=== PATIENT | male | born 1995 | race Caucasian/White ===

== ENCOUNTER 2018-10-26 19:26 | Emergency (ER) | payer SELFPAY ==
[2018-10-26 19:52] VITALS: BP 128/75; TEMP 98.2; O2SAT 97
[2018-10-26] MEDS ORDERED: predniSONE 20 MG TAB PO ONE (19:52)
[2018-10-26] MEDS ORDERED: CLINDAMYCIN HCL CAP 150 MG CAP PO ONE (19:52)
[2018-10-26] MEDS ORDERED: HYDROcodone 5MG/APAP 325MG 1 EA TAB PO ONE (19:53)
--- NOTE | 2018-10-26 19:57 | ED.PDOC ---
History of Present Illness - General Chief Complaint: General Stated Complaint: left jaw, faith, neck pain Time Seen by Provider: 10/26/18 19:52 Source: patient Exam Limitations: no limitations - History of Present Illness Initial Comments: The patient's 23-year-old male presenting to the emergency room secondary to pain extending from his left TMJ down to his lower molars on the left. He does have very poor dentition and multiple obvious cavities. No palpable abscess. No defining point tenderness. He does have pain over the temporomandibular joint. No obvious deformity. No crepitus. No recent trauma. No fevers. Timing/Duration: other - 3 days Severity: moderate Improving Factors: nothing Worsening Factors: nothing Associated Symptoms: denies symptoms Allergies/Adverse Reactions: Allergies NO KNOWN ALLERGY Allergy (Verified 10/26/18 19:51) Home Medications: Ambulatory Orders Clindamycin HCl 300 mg PO Q8H #20 cap 10/26/18 Tramadol HCl 50 mg PO Q8HR PRN #20 tab 10/26/18 Review of Systems - Review of Systems Constitutional: States: no symptoms reported EENTM: States: see HPI Respiratory: States: no symptoms reported Cardiology: States: no symptoms reported Gastrointestinal/Abdominal: States: no symptoms reported Genitourinary: States: no symptoms reported Musculoskeletal: States: no symptoms reported Skin: States: no symptoms reported Neurological: States: no symptoms reported Endocrine: States: no symptoms reported All other Systems: No Change from Baseline Past Medical History (General) - Patient Medical History Hx Seizures: No Hx Stroke: No Hx Dementia: No Hx Asthma: No Hx of COPD: No Hx Cardiac Disorders: No Hx Congestive Heart Failure: No Hx Pacemaker: No Hx Hypertension: No Hx Thyroid Disease: No Hx Diabetes: No Hx Gastroesophageal Reflux: No Hx Renal Disease: No Hx Cancer: No Hx of HIV: No Hx Hepatitis C: No Hx MRSA: No - Vaccination History Hx Tetanus, Diphtheria Vaccination: Yes - 2018 Hx Influenza Vaccination: Yes - Social History Hx Tobacco Use: Yes Hx Alcohol Use: Yes - social Family Medical History - Family History Mother Family History: Unknown Physical Exam - Physical Exam General Appearance: Alert, Comfortable, No apparent distress Eye Exam: bilateral normal Ears, Nose, Throat: hearing grossly normal, other - see history of present illness Neck: full range of motion, supple Respiratory: no respiratory distress, no accessory muscle use Cardiovascular/Chest: normal peripheral pulses, no edema Peripheral Pulses: radial,right: 2+, radial,left: 2+ Gastrointestinal/Abdominal: non tender, soft Rectal Exam: deferred Extremity: non-tender, normal inspection, no pedal edema, normal capillary refill Neurologic: stay cutter II-XII nml as tested, alert, normal mood/affect, oriented x 3 Skin Exam: normal color Comments: Vital Signs - 24 hr 10/26/18 19:35 Temperature 98.2 F Pulse Rate [ 89 monitor] Respiratory 18 Rate Blood Pressure 128/75 [Left Arm] O2 Sat by Pulse 97 Oximetry Progress - Progress Progress: 10/26/18 19:57 the patient's 23-year-old male presenting to emergency room secondary to pain in his left lower jaw. Source of this is not entirely certain. this could be some inflammation from the temporomandibular joint or it may be pain coming from one of his dental caries. The patient can try Orajel. He can also take 2 Aleve twice a day for the next few days with food. He has been given a dose of prednisone here to help reduce inflammation and he is being started on clindamycin which we can continue as an outpatient. He does need to see a dentist for his dental caries. A cool compress may also help symptoms. ER warnings were given. Departure - Departure Clinical Impression: Jaw pain Disposition: Discharge to Home or Self Care Condition: Fair Departure Forms: ED Discharge - Pt. Copy, Patient Portal Self Enrollment Instructions: Temporomandibular Joint (TMJ) Disorders (DC), Tooth Decay, Adult (DC) Diet: regular diet Activity: increase activity as tolerated Referrals: HANNAH CHAIREZ [Primary Care Provider] - 1-2 Weeks Prescriptions: Tramadol HCl 50 mg PO Q8HR PRN #20 tab PRN Reason: Moderate Pain Clindamycin HCl 300 mg PO Q8H #20 cap Home Medications: Ambulatory Orders Clindamycin HCl 300 mg PO Q8H #20 cap 10/26/18 Tramadol HCl 50 mg PO Q8HR PRN #20 tab 10/26/18 Additional Instructions: the patient's 23-year-old male presenting to emergency room secondary to pain in his left lower jaw. Source of this is not entirely certain. this could be some inflammation from the temporomandibular joint or it may be pain coming from one of his dental caries. The patient can try Orajel. He can also take 2 Aleve twice a day for the next few days with food. He has been given a dose of prednisone here to help reduce inflammation and he is being started on clindamycin which we can continue as an outpatient. He does need to see a dentist for his dental caries. A cool compress may also help symptoms. ER warnings were given.
== END 2018-10-26 20:24 | disposition home or self-care (01) ==
LOC: ER 19:26
DX: R68.84 Jaw pain (principal); K02.9 Dental caries, unspecified

== ENCOUNTER 2019-08-21 00:14 | Emergency (ER) | payer SELFPAY ==
[2019-08-21 00:32] VITALS: O2SAT 95
--- NOTE | 2019-08-21 00:36 | ED.PDOC ---
History of Present Illness - General Chief Complaint: Back Pain or Injury Stated Complaint: left lateral back pain Time Seen by Provider: 08/21/19 00:29 - History of Present Illness Initial Comments: this is a 24-year-old young man who presents to the ED with complaints of left- sided flank pain starting approximately 2-1/2 hours ago. He states that he had this feeling once before but never had it evaluated. He has no known history of kidney stones. He states that he is slightly nauseated but has not vomited. He describes the pain as being a 6-7/10 in intensity. Patient denies any recent hematuria. He does admit to radiation of the pain to the left inguinal region. He denies any chronic history of low back pain. He does admit that he has not taking his antihypertensive which was prescribed. He is also a smoker. Allergies/Adverse Reactions: Allergies NO KNOWN ALLERGY Allergy (Verified 10/26/18 19:51) Home Medications: Ambulatory Orders Clindamycin HCl 300 mg PO Q8H #20 cap 10/26/18 Tramadol HCl 50 mg PO Q8HR PRN #20 tab 10/26/18 Ciprofloxacin [Cipro] 250 mg PO Q12H #14 tablet 08/21/19 Ketorolac Tromethamine [Toradol Tabs] 10 mg PO Q6HR #20 tab 08/21/19 Ondansetron Tab [Zofran Tab] 4 mg PO Q6HR #10 tab 08/21/19 Tamsulosin HCl [Flomax] 0.4 mg PO DAILY #10 cap 08/21/19 Review of Systems - Review of Systems Constitutional: States: no symptoms reported EENTM: States: no symptoms reported Respiratory: States: no symptoms reported Cardiology: States: no symptoms reported Gastrointestinal/Abdominal: States: see HPI, nausea Genitourinary: States: no symptoms reported. Denies: dysuria, frequency, hematuria Musculoskeletal: States: back pain, other - left flank pain Skin: States: no symptoms reported Neurological: States: no symptoms reported Endocrine: States: no symptoms reported Hematologic/Lymphatic: States: no symptoms reported All other Systems: Reviewed and Negative Past Medical History (General) - Patient Medical History Hx Seizures: No Hx Stroke: No Hx Dementia: No Hx Asthma: No Hx of COPD: No Hx Cardiac Disorders: No Hx Congestive Heart Failure: No Hx Pacemaker: No Hx Hypertension: No Hx Thyroid Disease: No Hx Diabetes: No Hx Gastroesophageal Reflux: No Hx Renal Disease: No Hx Cancer: No Hx of HIV: No Hx Hepatitis C: No Hx MRSA: No Surgical History: other - Vaccination History Hx Tetanus, Diphtheria Vaccination: Yes Hx Influenza Vaccination: Yes - Social History Hx Tobacco Use: Yes Hx Alcohol Use: No Family Medical History - Family History Mother Family History: Unknown Physical Exam - Physical Exam General Appearance: Alert, No apparent distress Eyes, Ears, Nose, Throat Exam: PERRL/EOMI Neck Exam: non-tender, full range of motion Cardiovascular/Respiratory: regular rate, rhythm, no M/R/G, normal peripheral pulses, no JVD, normal breath sounds, no respiratory distress Gastrointestinal/Abdominal: normal bowel sounds, non tender, soft, no organomegaly, no pulsatile mass Back Exam: CVA tenderness (L), other - mild tenderness is noted. Extremity Exam: no evidence of injury Neurologic: alert, normal mood/affect, oriented x 3 Skin Exam: normal color, warm/dry Progress - Progress Progress: 08/21/19 01:10 the patient does have evidence of hematuria and the Toradol has helped his pain. Patient is resting comfortably. - Results/Orders Results/Orders: IMPRESSION: - Left hydronephrosis and proximal hydroureter due to an irregular 7 mm left ureteral stone at the level of the L4 vertebral body. - Possible irregular urinary bladder wall thickening versus artifact related to underdistention. Suspicious for nonspecific cystitis, however, clinical correlation is suggested. - Significant fecal retention and patchy colonic spasm without apparent bowel obstruction. - Liver borderline enlarged and diffusely fatty infiltrated without focal hepatic abnormality seen. Clinical correlation is suggested. - Study provided limited by lack of intravenous contrast. Thank you for allowing us to participate in the care of this patient. Electronically signed by: Rohan Phan MD 08/21/2019 1:18 AM CDT 08/21/19 00:36 IV:Start .ONCE Laboratory Results - last 24 hr 08/21/19 08/21/19 08/21/19 00:40 00:47 00:47 WBC 10.0 RBC 4.71 Hgb 15.7 Hct 44.8 MCV 95.1 H MCH 33.3 H MCHC 35.1 RDW 12.9 Plt Count 213 MPV 8.8 Absolute Neuts (auto) 5.30 Absolute Lymphs (auto) 3.10 Absolute Monos (auto) 0.90 H Absolute Eos (auto) 0.50 H Absolute Basos (auto) 0.10 Neutrophils % 53.5 Lymphocytes % 31.4 Monocytes % 9.4 H Eosinophils % 5.2 H Basophils % 0.5 Sodium 141 Potassium 3.8 Chloride 106 Carbon Dioxide 22 Anion Gap 16.8 BUN 16 Creatinine 1.01 BUN/Creatinine Ratio 15.8 Random Glucose 117 H Serum Osmolality 283.5 Calcium 9.9 Total Bilirubin 0.7 AST 58 H ALT 90 H Alkaline Phosphatase 55 Serum Total Protein 8.2 Albumin 5.3 Globulin 2.9 Albumin/Globulin Ratio 1.8 Urine Color Dk yellow Urine Appearance Clear Urine pH 5.5 Ur Specific [place] >= 1.030 Urine Protein Negative Urine Glucose (UA) Negative Urine Ketones Negative Urine Blood Moderate H Urine Nitrite Negative Urine Bilirubin Negative Urine Urobilinogen 0.2 Ur Leukocyte Esterase Negative Urine RBC 3-5 H Urine WBC 5-10 H Ur Epithelial Cells 0 Urine Bacteria Rare Urine Mucus Moderate Departure - Departure Clinical Impression: Ureterolithiasis, Renal colic on left side Time of Disposition: 01:36 Disposition: Discharge to Home or Self Care Condition: Good Departure Forms: ED Discharge - Pt. Copy, Patient Portal Self Enrollment Instructions: Kidney Stones (DC) Referrals: HANNAH CHAIREZ [Primary Care Provider] - 1-2 Weeks LIMA PETERSEN MD [Consulting Staff] - 1-2 Weeks Prescriptions: Ketorolac Tromethamine [Toradol Tabs] 10 mg PO Q6HR #20 tab Ondansetron Tab [Zofran Tab] 4 mg PO Q6HR #10 tab Ciprofloxacin [Cipro] 250 mg PO Q12H #14 tablet Tamsulosin HCl [Flomax] 0.4 mg PO DAILY #10 cap Home Medications: Ambulatory Orders Clindamycin HCl 300 mg PO Q8H #20 cap 10/26/18 Tramadol HCl 50 mg PO Q8HR PRN #20 tab 10/26/18 Ciprofloxacin [Cipro] 250 mg PO Q12H #14 tablet 08/21/19 Ketorolac Tromethamine [Toradol Tabs] 10 mg PO Q6HR #20 tab 08/21/19 Ondansetron Tab [Zofran Tab] 4 mg PO Q6HR #10 tab 08/21/19 Tamsulosin HCl [Flomax] 0.4 mg PO DAILY #10 cap 08/21/19 Additional Instructions: patient informed that if pain is uncontrollable he is to return to the ED for further evaluation and treatment. He may possibly be admitted or transferred if that occurs. Take all medications as prescribed. Schedule appointment with Dr. Petersen.
[2019-08-21] MEDS ORDERED: KETOROLAC TROMETHAMINE INJ 30 MG/ML VIAL IV ONE (00:37)
[2019-08-21] MEDS ORDERED: ONDANSETRON INJ 4 MG/2 ML VIAL IV ONE (00:37)
[2019-08-21] MEDS ORDERED: TAMSULOSIN 0.4 MG CAP PO ONE (01:13)
--- NOTE | 2019-08-21 01:20 | CT ---
EXAM: CT Abdomen and Pelvis Without Intravenous Contrast CLINICAL HISTORY: 24 years old Male; flank pain, left. TECHNIQUE: Axial computed tomography images of the abdomen and pelvis without intravenous contrast. Sagittal and coronal reformatted images were created and reviewed. This CT exam was performed using one or more of the following dose reduction techniques: automated exposure control, adjustment of the mA and/or kV according to patient size, and/or use of iterative reconstruction technique. COMPARISON: No relevant prior studies available. FINDINGS: LIMITATIONS: Study provided limited by lack of intravenous contrast. LUNG BASES: Minimal patchy infiltrate/atelectasis in the lung bases, especially dependently and minimal nodularity in the peripheral left lung base. ABDOMEN: LIVER: Liver borderline enlarged and diffusely fatty infiltrated without focal hepatic abnormality seen. GALLBLADDER AND BILE DUCTS: Normal without CT evidence of acute cholecystitis. PANCREAS: Unremarkable. No ductal dilation. SPLEEN: No splenomegaly or focal abnormality seen. ADRENALS: Unremarkable. No mass. KIDNEYS AND URETERS: Left hydronephrosis and proximal hydroureter due to an irregular 7 mm left ureteral stone at the level of the L4 vertebral body. Small bilateral nonobstructing renal stones. No ureteral stone or hydroureteronephrosis on the right. STOMACH AND BOWEL: Significant fecal retention and patchy colonic spasm without apparent bowel obstruction. PELVIS: APPENDIX: No CT findings to suggest acute appendicitis. BLADDER: Possible irregular urinary bladder wall thickening versus artifact related to underdistention. REPRODUCTIVE: Unremarkable as visualized. ABDOMEN and PELVIS: INTRAPERITONEAL SPACE: No pneumoperitoneum. No free fluid or loculated fluid collection seen. BONES/JOINTS: No acute bony abnormality seen. One small bone island in the anterior head/neck of the left femur. SOFT TISSUES: No acute abnormality seen. VASCULATURE: No acute abnormality seen. LYMPH NODES: Small mesenteric lymph nodes. IMPRESSION: - Left hydronephrosis and proximal hydroureter due to an irregular 7 mm left ureteral stone at the level of the L4 vertebral body. - Possible irregular urinary bladder wall thickening versus artifact related to underdistention. Suspicious for nonspecific cystitis, however, clinical correlation is suggested. - Significant fecal retention and patchy colonic spasm without apparent bowel obstruction. - Liver borderline enlarged and diffusely fatty infiltrated without focal hepatic abnormality seen. Clinical correlation is suggested. - Study provided limited by lack of intravenous contrast. Thank you for allowing us to participate in the care of this patient. Electronically signed by: Rohan Phan MD 08/21/2019 1:18 AM CDT
[2019-08-21] MEDS ORDERED: levoFLOXacin 500 MG TAB PO ONE (01:21)
[2019-08-21 01:51] VITALS: BP 147/92; TEMP 97.6
== END 2019-08-21 01:49 | disposition home or self-care (01) ==
LOC: ER 00:14
DX: N13.2 Hydronephrosis with renal and ureteral calculous obstruction (principal); F17.200 Nicotine dependence, unspecified, uncomplicated
CPT/HCPCS: 74176; 80053; 81001; 85025; J1885; J2405

== ENCOUNTER 2020-02-14 15:43 | Emergency (ER) | payer SELFPAY ==
[2020-02-14] MEDS ORDERED: SODIUM CHLORIDE 0.9% 1000ML 1,000 ML IVS ONE (16:03)
[2020-02-14] MEDS ORDERED: ACETAMINOPHEN 500 MG TAB PO ONE (16:03)
[2020-02-14] MEDS ORDERED: KETOROLAC TROMETHAMINE INJ 30 MG/ML VIAL IV ONE (16:04)
[2020-02-14 16:15] VITALS: TEMP 97.6; O2SAT 96
--- NOTE | 2020-02-14 16:16 | ED.PDOC ---
History of Present Illness - General Chief Complaint: Problem Stated Complaint: trying to pass kidney stone Time Seen by Provider: 02/14/20 16:03 - History of Present Illness Initial Comments: 24 yo M PMH HTN and Kidney Stones 6 months ago presents to ED c/o Left sided abdominal pain and flank pain intermittently x 2 weeks. Also reports nausea none currently denies recent travel cough or contact with covid19 denies fever chills nausea vomiting diarrhea chest pain sob diaphoresis no change in diet bowel or bladder symptoms disturb rest admits drinking and smoking admits FH HTN DM has PMD for follow up no other c/o today. Allergies/Adverse Reactions: Allergies NO KNOWN ALLERGY Allergy (Verified 02/14/20 16:02) Home Medications: Ambulatory Orders Tamsulosin HCl [Flomax] 0.4 mg PO DAILY #10 cap 08/21/19 Acetaminophen [Tylenol] 650 mg PO Q6H PRN #30 tab 02/14/20 Amoxicillin & Pot Clavulanate [Augmentin Tab] 875 mg PO BID 10 Days #20 tab 02/14/20 Ibuprofen 600 mg PO Q6H PRN #20 tab 02/14/20 Ondansetron Tab [Zofran Tab] 4 mg PO TID PRN 5 Days #15 tab 02/14/20 Review of Systems - Review of Systems Constitutional: States: see HPI EENTM: States: see HPI Respiratory: States: see HPI Cardiology: States: see HPI Gastrointestinal/Abdominal: States: see HPI Genitourinary: States: see HPI Musculoskeletal: States: see HPI Skin: States: see HPI Neurological: States: see HPI Endocrine: States: see HPI Hematologic/Lymphatic: States: see HPI All other Systems: Reviewed and Negative Past Medical History (General) - Patient Medical History Hx Seizures: No Hx Stroke: No Hx Dementia: No Hx Asthma: No Hx of COPD: No Hx Cardiac Disorders: No Hx Congestive Heart Failure: No Hx Pacemaker: No Hx Hypertension: No Hx Thyroid Disease: No Hx Diabetes: No Hx Gastroesophageal Reflux: No Hx Renal Disease: No Hx Cancer: No Hx of HIV: No Hx Hepatitis C: No Hx MRSA: No - Vaccination History Hx Tetanus, Diphtheria Vaccination: Yes Hx Influenza Vaccination: Yes Hx Pneumococcal Vaccination: No Immunizations Up to Date: No - Social History Hx Tobacco Use: Yes Hx Alcohol Use: No Hx Substance Use: No Hx Depression: No Family Medical History - Family History Mother Family History: Unknown Physical Exam - Physical Exam General Appearance: Other - uncomfortable Eye Exam: bilateral normal Ears, Nose, Throat: normal ENT inspection Neck: non-tender, full range of motion Respiratory: no respiratory distress Cardiovascular/Chest: regular rate, rhythm Gastrointestinal/Abdominal: soft, tenderness - tender LLQ and left flank/CVA Rectal Exam: deferred Back Exam: normal inspection, other - left CVA tenderness Extremity: normal range of motion, non-tender Neurologic: no motor/sensory deficits Skin Exam: normal color Progress - Progress Progress: A/P-Abdominal Pain, Flank Pain-iv bolus tylenol toradol cbc cmp lipase ct abdomen pelvis reassess 02/14/20 16:13 PPE worn-N95 surgical mask with attached face shield over N95 goggles gloves and a face shield over that 02/14/20 16:17 02/14/20 17:02 Laboratory Tests 02/14/20 02/14/20 02/14/20 16:10 16:10 16:10 WBC 7.8 RBC 4.69 L Hgb 15.2 Hct 43.7 MCV 93.2 MCH 32.5 H MCHC 34.8 RDW 14.2 Plt Count 197 MPV 8.7 Absolute Neuts (auto) 4.10 Absolute Lymphs (auto) 2.60 Absolute Monos (auto) 0.70 Absolute Eos (auto) 0.30 Absolute Basos (auto) 0.00 Neutrophils % 52.5 Lymphocytes % 33.1 Monocytes % 9.5 H Eosinophils % 4.3 Basophils % 0.6 Sodium 138 Potassium 4.2 Chloride 104 Carbon Dioxide 26 Anion Gap 12.2 BUN 13 Creatinine 0.90 BUN/Creatinine Ratio 14.4 Random Glucose 114 H Serum Osmolality 276.7 Calcium 9.2 Total Bilirubin 0.7 AST 31 ALT 45 Alkaline Phosphatase 58 Serum Total Protein 7.7 Albumin 4.6 Globulin 3.1 Albumin/Globulin Ratio 1.5 Lipase 56 H Urine Color Yellow Urine Appearance Clear Urine pH 7.0 Ur Specific [place] 1.020 Urine Protein Negative Urine Glucose (UA) Negative Urine Ketones Negative Urine Blood Moderate H Urine Nitrite Negative Urine Bilirubin Negative Urine Urobilinogen 0.2 Ur Leukocyte Esterase Negative Urine RBC 10-20 H Urine WBC 3-5 H Ur Epithelial Cells 0-1 Urine Bacteria Rare EXAM DESCRIPTION: Abdoment/Pelvis w/o Contrast CLINICAL HISTORY: 24 years Male, r/o stone COMPARISON: CT abdomen and pelvis 08/21/2019 TECHNIQUE: CT of the abdomen and pelvis acquired without IV contrast material utilizing renal stone protocol with patient imaged in prone position. Coronal and sagittal reformations provided. This exam was performed according to our departmental dose-optimization program, which includes automated exposure control, adjustment of the mA and/or kV according to patient size and/or use of iterative reconstru ction technique. FINDINGS: Lung bases: 4 mm round solid pulmonary nodule in the posterior lateral right lower lobe on image 10, series 2. Similar millimetric nodules are within the lateral left lower lobe as well measuring no greater than 3 mm, and are unchanged on the left from 08/21/2019. Limited evaluation of the solid organs secondary to the lack of intravenous contrast. Solid Organs: Hypoattenuation of the liver parenchyma. Unremarkable noncontrast appearance of the spleen, pancreas, gallbladder, adrenal glands. Punctate hyperdensities within the right greater than left kidneys. There is a 3 mm stone at the left uterosacral junction with tinier stones just proximal within the distal ureter. It is contributing to mild left hydroureter but no significant hydronephrosis. GI tract: Stomach moderately distended gastric content. No small bowel traction. Mild colonic stool. Normal appendix. Vascular: Normal. Musculoskeletal and soft tissues: No acute fracture or aggressive appearing osseous lesion. Soft tissues unremarkable. Urinary bladder: Normal. Prostate: Normal. Other: None. IMPRESSION: 1. Stones within the distal left ureter and at the left ureterovesicular junction with mild left hydroureter. No significant hydronephrosis. 2. Additional nonobstructing millimetric stones within the right and left kidneys. 3. Hepatic steatosis. 4. Subcentimeter pulmonary nodules as detailed above are likely infectious or inflammatory, with the left pulmonary nodules unchanged from 08/21/2019. No further imaging follow-up recommended in a patient without known malignancy without high risk factors. Electronically signed by: Mac Murray MD 02/14/2020 4:32 PM CDT Kidney Stones, Lung Nodules-d/c follow up pcp tylenol ibuprofen zofran augmentin Departure - Departure Clinical Impression: Flank pain, Kidney stones Abdominal pain Qualifiers: Abdominal location: generalized Qualified Code(s): R10.84 - Generalized abdominal pain Time of Disposition: 17:11 Disposition: Discharge to Home or Self Care Condition: Good Departure Forms: ED Discharge - Pt. Copy, Patient Portal Self Enrollment Instructions: DI for Kidney Stones Referrals: HANNAH CHAIREZ [Primary Care Provider] - 1-2 Days Prescriptions: Acetaminophen [Tylenol] 650 mg PO Q6H PRN #30 tab PRN Reason: Pain Amoxicillin & Pot Clavulanate [Augmentin Tab] 875 mg PO BID 10 Days #20 tab Ibuprofen 600 mg PO Q6H PRN #20 tab PRN Reason: Pain Ondansetron Tab [Zofran Tab] 4 mg PO TID PRN 5 Days #15 tab PRN Reason: Nausea Home Medications: Ambulatory Orders Tamsulosin HCl [Flomax] 0.4 mg PO DAILY #10 cap 08/21/19 Acetaminophen [Tylenol] 650 mg PO Q6H PRN #30 tab 02/14/20 Amoxicillin & Pot Clavulanate [Augmentin Tab] 875 mg PO BID 10 Days #20 tab 02/14/20 Ibuprofen 600 mg PO Q6H PRN #20 tab 02/14/20 Ondansetron Tab [Zofran Tab] 4 mg PO TID PRN 5 Days #15 tab 02/14/20
--- NOTE | 2020-02-14 16:33 | CT ---
EXAM DESCRIPTION: Abdoment/Pelvis w/o Contrast CLINICAL HISTORY: 24 years Male, r/o stone COMPARISON: CT abdomen and pelvis 08/21/2019 TECHNIQUE: CT of the abdomen and pelvis acquired without IV contrast material utilizing renal stone protocol with patient imaged in prone position. Coronal and sagittal reformations provided. This exam was performed according to our departmental dose-optimization program, which includes automated exposure control, adjustment of the mA and/or kV according to patient size and/or use of iterative reconstruction technique. FINDINGS: Lung bases: 4 mm round solid pulmonary nodule in the posterior lateral right lower lobe on image 10, series 2. Similar millimetric nodules are within the lateral left lower lobe as well measuring no greater than 3 mm, and are unchanged on the left from 08/21/2019. Limited evaluation of the solid organs secondary to the lack of intravenous contrast. Solid Organs: Hypoattenuation of the liver parenchyma. Unremarkable noncontrast appearance of the spleen, pancreas, gallbladder, adrenal glands. Punctate hyperdensities within the right greater than left kidneys. There is a 3 mm stone at the left uterosacral junction with tinier stones just proximal within the distal ureter. It is contributing to mild left hydroureter but no significant hydronephrosis. GI tract: Stomach moderately distended gastric content. No small bowel traction. Mild colonic stool. Normal appendix. Vascular: Normal. Musculoskeletal and soft tissues: No acute fracture or aggressive appearing osseous lesion. Soft tissues unremarkable. Urinary bladder: Normal. Prostate: Normal. Other: None. IMPRESSION: 1. Stones within the distal left ureter and at the left ureterovesicular junction with mild left hydroureter. No significant hydronephrosis. 2. Additional nonobstructing millimetric stones within the right and left kidneys. 3. Hepatic steatosis. 4. Subcentimeter pulmonary nodules as detailed above are likely infectious or inflammatory, with the left pulmonary nodules unchanged from 08/21/2019. No further imaging follow-up recommended in a patient without known malignancy without high risk factors. Electronically signed by: Mac Murray MD 02/14/2020 4:32 PM CDT
[2020-02-14 17:42] VITALS: BP 141/94
== END 2020-02-14 17:42 | disposition home or self-care (01) ==
LOC: ER 15:43
DX: N20.1 Calculus of ureter (principal); R10.84 Generalized abdominal pain; I10 Essential (primary) hypertension; Z87.442 Personal history of urinary calculi; F17.200 Nicotine dependence, unspecified, uncomplicated
CPT/HCPCS: 74176; 80053; 81001; 83690; 85025; J1885; J7030